=== PATIENT | female | born 1995 | race Caucasian/White ===

== ENCOUNTER 2021-05-25 20:10 | Emergency (ER) | payer OTHER ==
[~2021-05-25 20:10] MED LIST: BENTYL 20MG TAB20 MG PO; COLACE 100MG C100 MG PO; IBUPROFEN600 MG PO; PHENERGAN 12.12.5 M1 PO; REGLAN10 MG PO; ZOFRAN4 MG PO
== END 2021-05-25 22:20 | disposition home or self-care (01) ==
LOC: ER1 20:10
PROVIDERS: Physician Assistant
DX: O99.892 Other specified diseases and conditions complicating childbirth (principal); Z13.89 Encounter for screening for other disorder; Z88.0 Allergy status to penicillin; Z3A.16 16 weeks gestation of pregnancy
CPT/HCPCS: 80307; 99284